=== PATIENT | male | born 1950 | race Caucasian/White ===

== ENCOUNTER 2022-07-01 08:19 | Emergency (ER) | payer MEDICARE, BC ==
[~2022-07-01] VITALS: Ht 172.7 cm; Wt 118.0 kg
[~2022-07-01 08:19] MED LIST: ATENOLOL50 MG PO; MINOXIDIL 2.5 PO
[2022-07-01 08:31] VITALS: TEMP 97.7
[2022-07-01 08:56] LABS: BASO # 0.1 K/mm3 (0.0-0.2); BASO % 1.1 % (0.0-2.0); EOS # 0.2 K/mm3 (0.0-0.7); EOS % 2.6 % (0.0-4.0); GRAN % 68.8 % (42.2-75.2); HEMATOCRIT 49.4 % (42.0-52.0); HEMOGLOBIN 17.6 g/dl (13.5-18.0); LYMPH # 1.4 K/mm3 (1.2-3.4); LYMPH % 19.1 % (20.0-51.0); MEAN CELL VOLUME 86 fl (80.0-100.0); MEAN CORPUSCULAR HEMOGLOBIN 31 pg (27-31); MEAN CORPUSCULAR HGB CONC 36 g/dl (33.0-37.0); MEAN PLATELET VOLUME 9.8 fl (7.4-10.4); MONO # 0.6 K/mm3 (0.1-0.6); PLATELET COUNT 239 K/mm3 (130-400); RED BLOOD COUNT 5.77 M/mm3 (4.20-5.60); REDCELL DISTRIBUTION WIDTH-CV 13.8 % (11.5-14.5)
[2022-07-01 09:24] LABS: ALBUMIN 4.4 gm/dL (3.4-4.8); BILIRUBIN,TOTAL 1.5 mg/dL (0.2-1.2); CALCIUM 9.5 mg/dL (8.4-10.2); CREATININE, serum 0.96 mg/dL (0.72-1.25); POTASSIUM 3.6 mmol/L (3.5-4.5); TOTAL PROTEIN 7.6 gm/dL (6.2-8.1)
[2022-07-01 09:31] LABS: TROPONIN-I 0.133 ng/mL (0.00-0.033)
[2022-07-01 17:19] VITALS: BP 148/88; PULSE 80
[2022-07-11] MEDS ORDERED: CORDARONE200 MG/TAB PO (15:37)
[2022-07-11] MEDS ORDERED: TYLENOL 500MG500 MG PO (15:37)
[2022-07-11] MEDS ORDERED: ASPIRIN 81M81 MG/TA2 PO (15:38)
[2022-07-11] MEDS ORDERED: LIPITOR 80MG80 MG PO (15:38)
[2022-07-11] MEDS ORDERED: [UNRECOGNIZED DRUG - OTHER] PO (15:39)
[2022-07-11] MEDS ORDERED: PLAVIX 75MG TAB75 MG PO (15:39)
[2022-07-11] MEDS ORDERED: CORRECTOL5 MG PO (15:39)
[2022-07-11] MEDS ORDERED: PEPCID 20MG TAB20 MG PO (15:40)
[2022-07-11] MEDS ORDERED: GLUCOTROL10 MG PO (15:40)
[2022-07-11] MEDS ORDERED: LOPRESSOR 225 MG/TAB PO (15:44)
[2022-07-11] MEDS ORDERED: NITROSTAT0.4 MG/TAB SL (15:44)
[2022-07-11] MEDS ORDERED: K-DUR20 MEQ PO (15:45)
[2022-07-11] MEDS ORDERED: ULTRAM 50MG TAB50 MG PO (15:46)
[2022-07-11] MEDS ORDERED: TRULICITY3 MG/0.5 M SQ (15:47)
[2022-07-11] MEDS ORDERED: [UNRECOGNIZED DRUG - OTHER] (15:49)
[2022-07-11] MEDS ORDERED: DHEA25 M3 PO (15:49)
[2022-07-11] MEDS ORDERED: CHROMIUM PICOLI1 TA8 PO (15:49)
[2022-07-11] MEDS ORDERED: EPA FISH OIL1 SGL PO (15:50)
[2022-07-11] MEDS ORDERED: ZETIA 10MG TAB10 MG PO (15:50)
[2022-07-11] MEDS ORDERED: ERGOCALCIFER50000 IU PO (15:50)
[2022-07-11] MEDS ORDERED: L-GLUTAMINE500 M5 PO (15:51)
[2022-07-11] MEDS ORDERED: FORT1000TA PO (15:51)
[2022-07-11] MEDS ORDERED: NAC600 MG PO (15:52)
[2022-07-11] MEDS ORDERED: UBIQUINOL100 MG PO (15:53)
== END 2022-07-01 17:33 | disposition short-term general hospital (02) ==
LOC: COL.ER 08:19
PROVIDERS: Emergency Medicine
DX: I21.4 Non-ST elevation (NSTEMI) myocardial infarction (principal); I16.0 Hypertensive urgency; Z87.891 Personal history of nicotine dependence; Z20.822 Contact with and (suspected) exposure to COVID-19
CPT/HCPCS: J1644; J3010

== ENCOUNTER → 2022-08-10 | Outpatient (RCR) | payer MEDICARE, BC ==
[~2022-08-10] MED LIST changes: +ASPIRIN 81M81 MG/TA2 PO; +CHROMIUM PICOLI1 TA8 PO; +CORDARONE200 MG/TAB PO; +CORRECTOL5 MG PO; +DHEA25 M3 PO; +EPA FISH OIL1 SGL PO; +ERGOCALCIFER50000 IU PO; +FORT1000TA PO; +GLUCOTROL10 MG PO; +K-DUR20 MEQ PO; +K-TAB20 PO; +L-GLUTAMINE500 M5 PO; +LASIX 20MG TABL20 MG PO; +LIPITOR 80MG80 MG PO; +LOPRESSOR 225 MG/TAB PO; +NAC600 MG PO; +NITROSTAT0.4 MG/TAB SL; +PEPCID 20MG TAB20 MG PO; +PLAVIX 75MG TAB75 MG PO; +TRULICITY3 MG/0.5 M SQ; +TYLENOL 500MG500 MG PO; +UBIQUINOL100 MG PO; +ULTRAM 50MG TAB50 MG PO; +ZETIA 10MG TAB10 MG PO; +[UNRECOGNIZED DRUG - OTHER]; +[UNRECOGNIZED DRUG - OTHER] PO
== END | disposition home or self-care (01) ==
LOC: COL.CR
DX: Z48.812 Encounter for surgical aftercare following surgery on the circulatory system (principal); Z95.1 Presence of aortocoronary bypass graft